=== PATIENT | female | born 1985 | race Caucasian/White ===

== ENCOUNTER 2023-10-13 18:09 | Inpatient (IN) | payer BC, SELFPAY ==
[2023-10-13 18:15] VITALS: BP 123/75; BMI 25.8
[2023-10-13 19:12] LABS: Amphetamines Negative (Negative); Barbiturates Negative (Negative); Benzodiazepines Negative (Negative); Buprenorphine Negative (Negative); Cocaine Negative (Negative); Marijuana Negative (Negative); Methadone Negative (Negative); Methamphetamines Negative (Negative); Phencyclidine Negative (Negative); Tricyclic Antidepressants Negative (Negative)
[2023-10-13 19:13] LABS: Opiates Positive (Negative)
[2023-10-13 19:37] LABS: % Basophils 0.3 % (0-2); % Eosinophils 1.4 % (0-6); % Immature Granulocytes 0.6 % (0-0.5); % Lymphocytes 16.8 % (20.5-51.1); % Monocytes 4.5 % (1.7-9.3); % Neutrophils 76.4 % (42.2-75.2); Absolute Eosinophils 0.2 10^3/uL (0-0.7); Absolute Immature Granulocytes 0.1 10^3/uL (0-0.05); Absolute Lymphocytes 2.1 10^3/uL (1.2-3.4); Absolute Monocytes 0.6 10^3/uL (0.1-0.6); Absolute Neutrophils 9.5 10^3/uL (1.4-6.5); Hematocrit 41.1 % (37.0-47.0); Hemoglobin 14.9 g/dL (12.0-16.0); Mean Corp Hgb Conc. 36.3 g/dL (33.0-37.0); Mean Corpuscular Hgb 31.3 pg (27.0-31.0); Mean Corpuscular Volume 86.3 fL (81.0-99.0); Mean Platelet Volume 12.6 fL (7.4-10.4); Nucleated Red Blood Cells % 0 %; Platelet Count 205 10^3/uL (130-400); Red Blood Cell Count 4.76 10^6/uL (4.20-5.40); White Blood Cell Count 12.4 10^3/uL (4.8-10.8)
[2023-10-13 19:38] LABS: Fentanyl, Urine Negative (Negative)
[2023-10-13] MEDS: FENTANYL/BUPIVACAINE 100 EPIDURAL (19:54)
[2023-10-13] MEDS: SUBLIMAZE 100 MCG EPIDURAL (19:54)
[2023-10-13] MEDS: LR 1000 IV (20:05)
[2023-10-13 20:11] LABS: ALT (SGPT) 15 U/L (0-35); AST (SGOT) 27 U/L (14-36); Albumin 3.5 g/dl (3.5-5.0); Alkaline Phosphatase 235 U/L (38-126); Blood Urea Nitrogen 4 mg/dl (7-17); Calcium 8.9 mg/dl (8.4-10.2); Carbon Dioxide 25 mmol/L (22-30); Chloride 102 mmol/L (98-107); Estimated Creatinine Clearance 113 ml/min; Glucose 76 mg/dl (70-99); Potassium 3.8 mmol/L (3.5-5.1); Sodium 130 mmol/L (135-145); Total Bilirubin 0.5 mg/dl (0.2-1.3); Total Protein 6.2 g/dl (6.3-8.2); eGFR > 60.00
[2023-10-13] MEDS: SEROQUEL PO (20:20)
[2023-10-14] MEDS: FENTANYL/BUPIVACAINE 100 EPIDURAL ×2 (03:12→10:38)
[2023-10-14 08:04] LABS: ALT (SGPT) 15 U/L (0-35); AST (SGOT) 27 U/L (14-36); Albumin 3.1 g/dl (3.5-5.0); Alkaline Phosphatase 246 U/L (38-126); Blood Urea Nitrogen 3 mg/dl (7-17); Calcium 8.7 mg/dl (8.4-10.2); Carbon Dioxide 22 mmol/L (22-30); Chloride 103 mmol/L (98-107); Estimated Creatinine Clearance 113 ml/min; Glucose 80 mg/dl (70-99); Potassium 3.8 mmol/L (3.5-5.1); Sodium 130 mmol/L (135-145); Total Bilirubin 0.7 mg/dl (0.2-1.3); Total Protein 5.6 g/dl (6.3-8.2); eGFR > 60.00
[2023-10-14] MEDS: PITOCIN 30 UNITS/NSS 500 ML IV (08:46)
[2023-10-14] MEDS: ZOFRAN 4 MG IV (09:42)
--- NOTE | 2023-10-14 10:17 | CON.NAS ---
Neonatology GODWIN Consult
History
/Para:
Gestational Age: 37-42 weeks
Maternal History: Other (oxycodone use for last 8 yrs, h/o relapses corrected with suboxone .using upto 300 mg dose every day divided BID, also vaping )
Current Medication: Opiates and SSRI (seraquil)
Past Medication History: Opiates
Current Program Enrollment: Other (none)
Maternal Labs
Blood Type: O Positive
Antibody Screen: Negative
Hep B S Ag: Negative
HIV: Nonreactive
RPR: Nonreactive
Rubella: Nonimmune
Group B Strep: Negative
Chlamydia/GC: Negative
Hep C: Negative
Consult
Topics Discussed:
mom admitted yesterday with spontaneous labour, overnight appeared mom is withdrawing on questioning admitted to use of oxycodone upto 150 mg BID , in the past she has h/o relapses and managed with suboxone . her opoids are given by her friend.
- Variation in presentation for GODWIN and not dependent on the amount of medication
- Expected duration of observation, if asymptomatic
- Expect the baby to have symptoms, but not all symptoms need medication
- Non-pharmacologic measures to manage the symptoms include , skin to skin contact as much as possible, a dark quiet room etc.
- Care while on floor, observation
- Eat/sleep/console protocol, how it works, expectation from parents, what to expect from medical staff
- Transfer to pediatrics floor when mom is discharged as long as baby is stable otherwise
- Rescue doses of Morphine/how many/how often before starting on regular every 2-4 hr dosing
- Weaning protocol
- Phenobarbital if needed
- Social Service consult
Maternal Understanding:
1. Verbalizes understanding of GODWIN
2. Verbalizes expectations from patient
3. Verbalizes expectations from staff
4. Verbalizes the understanding of eat/sleep/console management and everyone's role
Questions from parents:
length of stay
Breast eeding
moms UDS positive for oxycodone
will check mec
Face to Face Time
Total Ylzj-ja-Pfhp Time (in Minutes): 30 min
[2023-10-14] MEDS: DILAUDID 1 MG IV (10:57)
--- NOTE | 2023-10-14 12:18 | CON.HOSP ---
Consultation
-
Date/Time Consultation Requested: 10/14/23 9:33am
Date/Time Consultation Performed: 10/14/23 10:30am
Requesting Provider: Dr. Alvarez
Performing Provider: Dr. Vieira
Reason for Consultation: Opioid withdrawal
Family Physician
-
Family Physician: * NONE
Chief Complaint
-
Opioid withdrawal
History of Present Illness
37-year-old female here delivery with active opiate withdrawal. She is 3 para 0.
Has been using up to 300 mg of oxycodone daily and vaping. Gets oxycodone from a friend. PDMP showed no opioids prescribed.
She was admitted yesterday with spontaneous labor.
Medical History
Past Medical History
Past Medical History: Reports Other
Additional Past Medical History:
Opioid dependence/abuse
Mcgarry's palsy
Past Surgical History: Reports Gynocological and Orthopedic
Additional Past Surgical History:
Hernia repair x 2
Social History
Tobacco: Vaping
Alcohol: None
Drug: Narcotics
Personal: Single
Family History
Family History: Reviewed & Not Pertinent
Allergies / Home Medications
Allergies reflects when Allergies were last updated in [facility] [employer] [facility].
Home Medications with original date entered in [employer] [facility]
Allergy/Medication List:
Allergies
Allergy/AdvReac Type Severity Reaction Status Date / Time
olanzapine Allergy Anaphylaxis Verified 10/13/23 21:02
Sulfa (Sulfonamide Allergy Hives Verified 10/13/23 21:02
Antibiotics)
Home Medications
prenat.vits,estephanie,rkn-suuv-tawqa 1 tab PO DAILY Supplement 10/13/23
quetiapine 50 mg tablet (Seroquel) 50 mg PO BID Mental Health/Anxiety 10/13/23
Review of Systems
-
History Source: Patient
A 12 point Review of Systems was completed except as noted: Yes
Physical Exam
Vital Signs
Vital Signs
Temp Pulse Resp BP
98.4 F 120 18 123/75
10/13/23 18:15 10/13/23 18:15 10/13/23 18:15 10/13/23 18:15
Physical Exam
General: Well Developed, Well Nourished, No Apparent Distress and Comfortable
HEENT: Normocephalic, Anicteric and Moist Mucous Membranes
Respiratory: Clear
Cardiac: S1/S2, Regular Rhythm and Tachycardia
Breast: Deferred by me
GI: Soft, Non Tender, Non Distended and Other (gravid)
Musculoskeletal: No Clubbing, No Cyanosis and No Edema
Skin: Warm and Dry
Neuro: AO x 3
Hematologic/Lymphatic: No Lymphadenopathy
Psych: Calm
Laboratory Results
-
Laboratory Results
10/13/23 19:14
10/14/23 07:43
Total Bilirubin 0.7 mg/dl (0.2-1.3) 10/14/23 07:43
AST 27 U/L (14-36) 10/14/23 07:43
ALT 15 U/L (0-35) 10/14/23 07:43
Alkaline Phosphatase 246 U/L (38-126) H 10/14/23 07:43
Impression / Plan
-
Opioid withdrawal syndrome -discussed with gynecology and pharmacy. Will use as needed IV Dilaudid for opioid withdrawal symptoms greater than 8. Once delivery completed, convert to buprenorphine as needed opioid withdrawal. Patient plans to
breast-feed and potentially buprenorphine can also treat withdrawal syndrome.
Currently has a fentanyl epidural infusing.
Hyponatremia -likely related to . Sodium 130. Monitor for now.
[2023-10-14] MEDS: SEROQUEL 50 MG PO (21:12)
[2023-10-14] MEDS: ZANAFLEX 2 MG PO (21:36)
[2023-10-14] MEDS: TYLENOL 650 MG PO (21:37)
[2023-10-14] MEDS: MOTRIN 600 MG PO (21:37)
[2023-10-14] MEDS: SUBUTEX 8 MG SL (23:36)
--- NOTE | 2023-10-15 04:10 | DOWNTIME ---
There was a [employer] Downtime on 10/15/2023 from 0111 to 10/15/2023 at 0405. Downtime documentation of patient's care, including medication administrations, has been reconciled in the electronic record per guidelines. Refer to the
patient's paper chart under the miscellaneous tab to see printed paper medication records and downtime forms.
[2023-10-15 06:14] LABS: Hematocrit 34.7 % (37.0-47.0); Hemoglobin 12.4 g/dL (12.0-16.0)
[2023-10-15] MEDS: MOTRIN 600 MG PO (06:28)
[2023-10-15] MEDS: SUBUTEX 8 MG SL (06:28)
[2023-10-15] MEDS: TYLENOL 650 MG PO ×2 (06:29→21:21)
[2023-10-15 06:44] LABS: ALT (SGPT) 13 U/L (0-35); AST (SGOT) 26 U/L (14-36); Albumin 2.3 g/dl (3.5-5.0); Alkaline Phosphatase 157 U/L (38-126); Direct Bilirubin 0.3 mg/dl (0.0-0.4); Total Bilirubin 0.3 mg/dl (0.2-1.3); Total Protein 4.8 g/dl (6.3-8.2)
[2023-10-15] MEDS: SEROQUEL PO (09:04)
[2023-10-15] MEDS: PRENATAL PLUS 1 TABLET PO (09:04)
--- NOTE | 2023-10-15 13:07 | CM ---
CM met with mother, father (Ziggy Dochow [phone]), and maternal grandmother (Faviola Gusman)
They all reside together in a private home in [place]
parents have baby supplies, bassinet, crib and car seats 3x
Parents have not picked a hypnotherapist yet
Mother has script for breast pump and will be ordering one
Mother with positive tox screen for opiates and oxycodone
Endorses unprescribed daily use
Notes long hx with substance abuse and 10x inpatient D/A rehab
Also notes short hx with Subutex
Father notes he is a recovering alcoholic and has been sober for 3 years+
He has two children that reside with their mother in [place]
He visits them every few months
Mother and father aware [employer] Report to be filed
Support and questions answered regarding CYS process
[employer] report called in and CY47 faxed to [facility] [phone]
Copy placed on chart
WIC, BCARES, MOMS program and [facility] resources provided to mother and father
Referral made to [facility]
Will await direction regarding safety planning from [facility] C[facility]
[2023-10-15] MEDS: SUBUTEX 16 MG SL (20:04)
[2023-10-15] MEDS: SEROQUEL 50 MG PO ×2 (20:06→20:21)
[2023-10-16] MEDS: PRENATAL PLUS 1 TABLET PO (07:43)
[2023-10-16] MEDS: MOTRIN 600 MG PO (07:43)
[2023-10-16] MEDS: SEROQUEL PO (08:44)
--- NOTE | 2023-10-16 09:36 | CM ---
Addendum entered by Kayleigh Cintron 10/16/23 16:16:
Spoke with Winnie
Reporting met with [facility] patient service technician pst Susan Holder
Working on safety plan
Mom to be d/c'ed as pt. She will be 'nesting' at the hospital to garcia and care for
Left message on VM of community case manager Susan regarding mom's d/c [phone], ext [phone]
Addendum entered by Kayleigh Cintron 10/16/23 11:16:
CM spoke with Mom
Mom aware a food service representative from [facility] will be coming to see her and baby today
Mom has chosen [facility] in [place] for cloth measurer machine for Rosenda
Mom planning to f/u post- at
Mom reporting she spoke with a food service representative from [facility] yesterday evening regarding out-pt rehab
CM will continue to follow
Original Note:
CM received call from Susan Holder from [facility]
Ms Holder plans to see mom & baby today
CM will continue to follow
Plan - Baby can not be d/c'ed until Mom/baby cleared by [facility]
[2023-10-16] MEDS: M-M-R II 0.5 ML SC (11:16)
[2023-10-16] MEDS: SUBUTEX 8 MG SL (12:43)
[2023-10-16] MEDS: SENOKOT-S 1 TABLET PO (15:40)
[2023-10-16] MEDS: FLEET PHOSPHATE ENEMA-ADULT 135 ML RECTAL (16:31)
[2023-10-17 15:35] LABS: Syphilis/T. pallidum Ab Reflex Negative (Negative)
== END 2023-10-16 18:11 | disposition home or self-care (01) | DRG 806 ==
LOC: LDRP 18:09
PROVIDERS: Obstetrics & Gynecology; ADMITTING PHYSICIAN Obstetrics & Gynecology; CONSULT PHYSICIAN Hospitalist; CONSULT PHYSICIAN Pediatrics
PROC: 6A550ZT Pheresis of Cord Blood Stem Cells, Single (ICD-10-PCS; 2023-10-14)
PROC: 0HQ9XZZ Repair Perineum Skin, External Approach (ICD-10-PCS; 2023-10-14)
PROC: 10E0XZZ Delivery of Products of Conception, External Approach (ICD-10-PCS; 2023-10-14)
PROC: 3E0134Z Introduction of Serum, Toxoid and Vaccine into Subcutaneous Tissue, Percutaneous Approach (ICD-10-PCS; 2023-10-15)
DX: O42.02 Full-term premature rupture of membranes, onset of labor within 24 hours of rupture (principal); E87.1 Hypo-osmolality and hyponatremia; Z37.0 Single live birth; F11.23 Opioid dependence with withdrawal; O99.324 Drug use complicating childbirth; Z3A.40 40 weeks gestation of pregnancy; O77.0 Labor and delivery complicated by meconium in amniotic fluid; Z88.2 Allergy status to sulfonamides; Z88.8 Allergy status to other drugs, medicaments and biological substances; Z23 Encounter for immunization; O48.0 Post-term pregnancy; Z86.14 Personal history of Methicillin resistant Staphylococcus aureus infection
CPT/HCPCS: 88307; 80053; 80076; 80306; 80307; 85014; 85018; 85025; 86780; 86850; 86900; 86901; 87070; 90707; 99406

== ENCOUNTER 2025-08-10 23:56 | Emergency (ER) | payer SELFPAY ==
[2025-08-11 00:10] VITALS: BP 124/73
[2025-08-11 01:38] VITALS: BMI 20.8
--- NOTE | 2025-08-11 03:51 | ED.GENMED ---
History of Present Illness
General
Chief Complaint: Eye Problems
Source: patient
Exam Limitations: none
Time Seen by Provider: 08/11/25 03:35
Nursing documentation reviewed up to this point in time: agreed with
History of Present Illness
History of Present Illness:
39-year-old female wears contacts, has not seen eye doctor about 3 years few days ago was playing with her child struck beneath the right eye has a bruise under her right eye it no real symptoms of though she could have been hit in the left eye she
thinks did have a headache at 1 point no headache now woke up tonight with some blurry vision saw a halo, no nausea or vomiting,
Past History
Past History
ED Past Medical History: Other (Mcgarry's Palsy)
ED Past Surgical History: Gynecological (D&E, Lap for abd adhesions), Orthopedic (Foot surgery right X 2) and Other (Hernia repair X 2)
Social History
Tobacco: Vaping
Alcohol: None
Drug: None
Personal: Single
Living: with family
Employment: Employed
Review of Systems
Review of Systems
All Other Systems: Not applicable
EENT: Reports other (Bruising underneath the right eye blurry vision on the left)
Neurological: Reports no symptoms; Denies dizzy, headache, weakness or numbness
Phy Exam
Physical Exam
Physical Exam:
Physical Exam
General: no apparent distress, not acutely ill
Neck: No photophobia bilaterally, extraocular movements intact, bilateral pupils round and reactive, some ecchymosis beneath the right eye no entrapment, left eye pupil round and reactive no photophobia positive
fluorescein uptake at 9 PM
Heart: s1/s2 regular rate and rhythm, no murmur. equal radial pulses.
Lungs: no acute respiratory distress.
Neuro: alert and oriented. no focal neurological deficits
Skin: no rash
Psychiatric: well kept. interactive and cooperative
Extremities: No edema
Course
Orders/Labs/Results
Orders:
Orders
08/11/25 03:42
Erythromycin (Ilotycin) [Erythromycin 0.5% Ophthalmic Ointment] See Dose Instructions OPHTH NOW STA
Vital Signs
Initial and Last Documented VS:
Initial Vital Signs
Temp Pulse Resp BP Pulse Ox
99.0 F 66 14 124/73 100
08/11/25 00:10 08/11/25 00:10 08/11/25 00:10 08/11/25 00:10 08/11/25 00:10
Last Documented Vital Signs
Temp Pulse Resp BP Pulse Ox
99.0 F 66 14 124/73 100
08/11/25 00:10 08/11/25 00:10 08/11/25 00:10 08/11/25 00:10 08/11/25 00:10
MDM/Problems Addressed
Differential Diagnosis Includes:
Corneal abrasion, ocular trauma, migraine, concussion,
MDM/Problems Addressed:
Blurry vision
*Pulse Oximetry
SaO2: 100
Oxygen Mode of Delivery: Room air
Patient hypoxic: no
*Critical Care Note
Total Time (30-74mins, 75-104mins- exclusive of procedures): Not Applicable
Update Note
Update Note:
Update patient no acute distress no photophobia extraocular movement intact does have fluorescein uptake visual acuities are noted will start on some topical antibiotic ointment refer nonurgently to ophthalmology encouraged her not to wear contacts
ED Attending Note
-
Portions of this chart may have been created with voice recognition software.� Occasional wrong word or��sound alike� substitutions may have occurred due to the inherent limitations of voice recognition software.
Discharge Plan
Departure
Patient Disposition: Home (Routine Discharge)
Date of Disposition: 08/11/25
Time of Disposition: 03:43
Patient with high blood pressure during this ER visit?: No
Condition: Good
Discharge Problem:
Corneal abrasion
Instructions: Corneal Abrasion (DC)
Prescriptions:
No Action
prenat.vits,estephanie,pkx-zodv-yxapy Tablet
1 tab PO DAILY
quetiapine [Seroquel] 50 mg Tablet
50 mg PO BID
ibuprofen 600 mg Tablet
600 mg PO Q6HPRN PRN (Reason: moderate pain/cramps) 90 Days Qty: 90 0RF
Referrals:
Afua Hdz MD [Active, Ophthalmology] - Next open appointment
Chary Tan MD [Family Provider, Family Practice]
Activity Restrictions/Additional Instructions:
Ibuprofen or Tylenol for pain
Do not wear your contacts
Antibiotic ointment 2-3 times a day to your affected eye
Call ophthalmology office to arrange follow-up care
Interventions
Interventions:
*General Assessment Last Done: 08/11/25 01:39
*Neglect/Abuse Screening Last Done: 08/11/25 01:40
*ED COVID-19 Vaccine History Last Done: 08/11/25 01:39
*ED Influenza Vaccine History Last Done: 08/11/25 01:39
[facility] Fall Risk Assessment Tool Last Done: 08/11/25 01:40
*Risk Screen - Suicide (C-SSRS) Last Done: 08/11/25 00:10
Discharge Date and Time
Print Language: MONGOLIAN
[2025-08-11] MEDS: ERYTHROMYCIN 0.5% OPHTHALMIC OINTMENT 1 APPLIC OPHTH (04:15)
== END 2025-08-11 04:26 | disposition home or self-care (01) ==
LOC: EMR 23:56
PROVIDERS: EMERGENCY PHYSICIAN Emergency Medicine; FAMILY PHYSICIAN Family Medicine
DX: S05.01XA Injury of conjunctiva and corneal abrasion without foreign body, right eye, initial encounter (principal); W50.0XXA Accidental hit or strike by another person, initial encounter; F17.290 Nicotine dependence, other tobacco product, uncomplicated
CPT/HCPCS: 99283